=== PATIENT | male | born 1985 | race American Indian/Alaskan Native ===

== ENCOUNTER 2017-04-22 13:57 | Emergency (ER) | payer BC ==
[2017-04-22] MEDS ORDERED: CATAPRES PO ONE (14:19)
--- NOTE | 2017-04-22 14:20 | Emergency Department Report ---
Blank Doc - Documentation Documentation: Patient is a 32-year-old -[place] male who is presented with headache. Patient states for the last month he has had off-and-on headaches intermittently throughout the day. Patient states he's been told his blood pressure was high in the past but has not been started on any medications. Patient blood pressure today is 190/120. Patient will be given Catapres will monitor his blood pressure. Patient has no signs or symptoms and organ damage she is denying any chest pain shortness of breath decreased urination at this time.
[2017-04-22] MEDS ORDERED: TYLENOL PO ONE (14:22)
--- NOTE | 2017-04-22 15:33 | Cat Scan Report ---
CT HEAD WITHOUT CONTRAST: HISTORY: Headache. TECHNIQUE: Sequential 2.5mm CT images. COMPARISON: none. FINDINGS: Cerebral Parenchyma: Within normal limits. Cerebellum: Within normal limits. Brainstem: Within normal limits. Ventricles: Normal. Sella: Normal. Extra-axial spaces: Normal. Basal Cisterns: Normal. Intracranial Hemorrhage: None. Midline Shift: None. Calvarium: Normal. Sinuses: Mild to moderate mucosal thickening is noted in the left frontal sinus and right maxillary sinus. Mastoid Air Cells: Normal. Visualized Orbits: Normal. IMPRESSION: Cranial CT scan within normal limits. Sinus disease as described, likely chronic.
[2017-04-22 15:44] VITALS: BP 138/87
--- NOTE | 2017-04-22 15:49 | Emergency Department Report ---
ED Headache HPI - General Chief Complaint: Headache Stated Complaint: HEADACHE Time Seen by Provider: 04/22/17 14:10 - History of Present Illness Initial Comments: This is a 32-year-old male nontoxic, well nourished in appearance, no acute signs of distress presents to the ED with c/o of intermittent headaches x1 month. Patient stated he was diagnosed with hypertension but has never started on any medications. Patient describes headache diffuse but primarily in the frontal sinus region. Patient describes headache as aching with gradual onset. Patient denies thunderclap headache. Patient denies any stiff neck, nausea, vomiting, chest pain, shortness of breathe, fever, chills, numbness, tingling. Patient denies any visual changes. Patient denies any allergies or significant past medical history. Timing/Duration: episodic Quality: mild Head Injury Location: frontal, other (diffuse) Recent Head Trauma: no recent headache/trauma, frequent headaches Associated Symptoms: denies symptoms. denies: confusion, fatigue, facial pain, fever/chills, flushing, loss of consciousness, nausea/vomiting, nasal congestion , nasal drainage, numbness in legs/feet, rash, seizures, sinus infection, stiff neck, vision changes, weakness Allergies/Adverse Reactions: Allergies No Known Allergies Allergy (Unverified 04/22/17 14:02) Home Medications: Ambulatory Orders Amoxicillin/K Clav Tab [Augmentin 875 mg] 1 tab PO Q12HR #20 tab 04/22/17 amLODIPine [Norvasc] 5 mg PO DAILY #30 tab 04/22/17 ED Review of Systems ROS: Stated complaint: HEADACHE Other details as noted in HPI Constitutional: denies: chills, fever Eyes: denies: eye pain, eye discharge, vision change ENT: denies: ear pain, throat pain Respiratory: denies: cough, shortness of breath, wheezing Cardiovascular: denies: chest pain, palpitations Endocrine: no symptoms reported Gastrointestinal: denies: abdominal pain, nausea, diarrhea Genitourinary: denies: urgency, dysuria Musculoskeletal: denies: back pain, joint swelling, arthralgia Skin: denies: rash, lesions Neurological: headache. denies: weakness, paresthesias Psychiatric: denies: anxiety, depression Hematological/Lymphatic: denies: easy bleeding, easy bruising ED Past Medical Hx - Past Medical History Previous Medical History?: No - Surgical History Past Surgical History?: No - Social History Smoking Status: Current Every Day Smoker Substance Use Type: None - Medications Home Medications: Home Medications Medication Instructions Recorded Confirmed Last Taken Type Amoxicillin/K Clav Tab [Augmentin 1 tab PO Q12HR #20 tab 04/22/17 Unknown Rx 875 mg] amLODIPine [Norvasc] 5 mg PO DAILY #30 tab 04/22/17 Unknown Rx ED Physical Exam - General Limitations: No Limitations General appearance: alert, in no apparent distress - Head Head exam: Present: atraumatic, normocephalic - Eye Eye exam: Present: normal appearance, PERRL, EOMI Pupils: Present: normal accommodation - ENT ENT exam: Present: normal exam, normal orophraynx, mucous membranes moist, TM's normal bilaterally, normal external ear exam - Neck Neck exam: Present: normal inspection, full ROM. Absent: tenderness, meningismus, lymphadenopathy, thyromegaly - Respiratory Respiratory exam: Present: normal lung sounds bilaterally. Absent: respiratory distress, wheezes, rales, rhonchi, stridor, chest wall tenderness, accessory muscle use, decreased breath sounds, prolonged expiratory - Cardiovascular Cardiovascular Exam: Present: regular rate, normal rhythm, normal heart sounds. Absent: bradycardia, tachycardia, irregular rhythm, systolic murmur, diastolic murmur, rubs, gallop - GI/Abdominal GI/Abdominal exam: Present: soft, normal bowel sounds. Absent: distended, tenderness, guarding, rebound, rigid, diminished bowel sounds - Rectal Rectal exam: Present: deferred - Extremities Exam Extremities exam: Present: normal inspection, full ROM, normal capillary refill. Absent: tenderness, pedal edema, joint swelling, calf tenderness, other - Back Exam Back exam: Present: normal inspection, full ROM. Absent: tenderness, CVA tenderness (R), CVA tenderness (L), muscle spasm, paraspinal tenderness, vertebral tenderness, rash noted - Neurological Exam Neurological exam: Present: alert, oriented X3, CN II-XII intact, normal gait, reflexes normal - Psychiatric Psychiatric exam: Present: normal affect, normal mood - Skin Skin exam: Present: warm, dry, intact, normal color. Absent: rash ED Course Vital Signs 04/22/17 04/22/17 14:03 15:44 Temperature 98.5 F 98.2 F Pulse Rate 70 72 Respiratory 16 20 Rate Blood Pressure 187/120 Blood Pressure 138/87 [Left] O2 Sat by Pulse 100 100 Oximetry - Reevaluation(s) Reevaluation #1: 04/22/17 15:51 Patient is speaking in full sentences with no signs of distress noted. - Consultations Consultation #1: 04/22/17 15:51 Patient has been consulted with Dr. Yin about patient history, physical exam , and labs and examined and screened patient and agrees to ED plan of care and discharge plan of care. ED Medical Decision Making - Medical Decision Making This is a 32-year-old male that presents with hypertension, headache and sinusitis. Patient is stable was examined by me and Dr. Yin. CT of head/ brain obtained and dictated by radiologist with impression f sinusitis. Patient was notified of the xray results with no questions noted by the patient. Patient received Tylneol and Catapres in the ED. Patients blood pressure decreased within normal limits.Patient stated headache has subsided after medical treatment in the ED. I will start patient on a low dose of Norvasc and patient was instructed to keep a daily dairy of blood pressure to present to the PCP. Patient also received Augmentin at discharge. Patient was instructed to Follow-up with a primary care doctor in 3-5 days or if symptoms worsen and continue return to emergency room as soon as possible. At time of discharge, the patient does not seem toxic or ill in appearance. No acute signs of distress noted. Patient agrees to discharge treatment plan of care. No further questions noted by the patient. Critical care attestation.: If time is entered above; I have spent that time in minutes in the direct care of this critically ill patient, excluding procedure time. ED Disposition Clinical Impression: Headache Qualifiers: Headache type: unspecified Headache chronicity pattern: acute headache Intractability: not intractable Qualified Code(s): R51 - Headache Hypertension Qualifiers: Hypertension type: unspecified Qualified Code(s): I10 - Essential (primary) hypertension Sinusitis Qualifiers: Sinusitis location: frontal Chronicity: acute Recurrence: non-recurrent Qualified Code(s): J01.10 - Acute frontal sinusitis, unspecified Disposition: DC-01 TO HOME OR SELFCARE Is pt being admited?: No Does the pt Need Aspirin: No Condition: Stable Instructions: Hypertension (ED), Acute Headache (ED), Sinusitis (ED), Amlodipine (By mouth) Additional Instructions: Follow-up with a primary care doctor in 3-5 days or if symptoms worsen and continue return to emergency room as soon as possible. Keep a daily diary of her blood pressure and presented to primary care doctor. Prescriptions: amLODIPine [Norvasc] 5 mg PO DAILY #30 tab Amoxicillin/K Clav Tab [Augmentin 875 mg] 1 tab PO Q12HR #20 tab Referrals: PRIMARY CAREMD [Primary Care Provider] - 3-5 Days SAIDA WAHL MD [Staff Physician] - 3-[address] [facility] [Outside] - 3-[address] [facility] [Outside] - 3-5 Days Forms: Work/School Release Form(ED)
== END 2017-04-22 16:11 | disposition home or self-care (01) ==
LOC: ED 13:57
DX: R51 Headache (principal); I10 Essential (primary) hypertension; J01.10 Acute frontal sinusitis, unspecified; F17.200 Nicotine dependence, unspecified, uncomplicated
CPT/HCPCS: 70450; 99283

== ENCOUNTER 2017-07-21 09:08 | Emergency (ER) | payer BC ==
[2017-07-21] MEDS ORDERED: TORADOL IM ONE (10:26)
--- NOTE | 2017-07-21 10:27 | Emergency Department Report ---
Chief Complaint: Extremity Problem,Nontraumatic Stated Complaint: RIGHT FOOT PAIN Time Seen by Provider: 07/21/17 10:20 - HPI History of Present Illness: 32-year-old -Citizen Of [place] male presents to the emergency department with a complaint of a one-day history of nontraumatic right foot pain mostly to the lateral portion. The pain worsens with ambulation but he is able to bear weight but walks with a limp. He denies any past medical history. He has not taken anything for her symptoms prior presentation. - ROS Review of Systems: Positive for right foot pain and swelling. Negative for skin color change - Exam Vital Signs: Vital Signs 07/21/17 09:14 Temperature 98.2 F Pulse Rate 63 Respiratory 19 Rate Blood Pressure 167/105 O2 Sat by Pulse 98 Oximetry Physical Exam: Patient was seen limping while walking secondary to pain in the foot. There is some reproducible tenderness to palpation to the right lateral mid foot. +2 over 4 dorsalis pedis pulse. MSE screening note: Focused history and physical exam performed. Due to findings the following was ordered: An x-ray of the right foot has been ordered and the patient will have a IM injection of Toradol ED Disposition for MSE Condition: Stable
[2017-07-21] MEDS ORDERED: NORVASC PO ONE (10:33)
--- NOTE | 2017-07-21 10:42 | Emergency Department Report ---
ED Lower Extremity HPI - General Chief Complaint: Extremity Problem,Nontraumatic Stated Complaint: RIGHT FOOT PAIN Time Seen by Provider: 07/21/17 10:20 Source: patient Mode of arrival: Ambulatory Limitations: No Limitations - History of Present Illness Initial Comments: This is a 32-year-old male nontoxic, well nourished in appearance, no acute signs of distress presents to the ED with c/o of right foot pain x1 day. 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 Patient denies any direct trauma. Patient denies any nausea, vomiting, chest pain, shortness of breathe, fever, chills, headache, numbness, or tingling. Patient stated that pain is increased with weight bearing. Patient denies any joint redness, joint swelling. Patient denies abnormal or decreased gait. Patient denies any allergies or PMH. MD Complaint: foot injury -: days(s) (1) Injury: Foot: Right (lateral side) Place: work Severity: mild Severity scale (0 -10): 8 Improves With: immobilization Worsens With: weight bearing Associated Symptoms: swelling, able to partially bear weight, ambulatory. denies: snap/pop sensation, numbness, tingling, unable to bear weight - Related Data Previous Rx's Medication Instructions Recorded Last Taken Type Amoxicillin/K Clav Tab [Augmentin 1 tab PO Q12HR #20 tab 04/22/17 Unknown Rx 875 mg] amLODIPine [Norvasc] 5 mg PO DAILY #30 tab 04/22/17 Unknown Rx Ibuprofen [Motrin] 600 mg PO Q8H PRN #30 tablet 07/21/17 Unknown Rx amLODIPine [Norvasc] 5 mg PO DAILY #30 tab 07/21/17 Unknown Rx Allergies Allergy/AdvReac Type Severity Reaction Status Date / Time No Known Allergies Allergy Unverified 04/22/17 14:02 ED Review of Systems ROS: Stated complaint: RIGHT FOOT PAIN Other details as noted in HPI Constitutional: denies: chills, fever Eyes: denies: eye pain, eye discharge, vision change ENT: denies: ear pain, throat pain Respiratory: denies: cough, shortness of breath, wheezing Cardiovascular: denies: chest pain, palpitations Endocrine: no symptoms reported Gastrointestinal: denies: abdominal pain, nausea, diarrhea Genitourinary: denies: urgency, dysuria Musculoskeletal: arthralgia. denies: back pain, joint swelling Skin: denies: rash, lesions Neurological: denies: headache, weakness, paresthesias Psychiatric: denies: anxiety, depression Hematological/Lymphatic: denies: easy bleeding, easy bruising ED Past Medical Hx - Past Medical History Previous Medical History?: Yes Hx Hypertension: Yes - Surgical History Past Surgical History?: No - Social History Smoking Status: Current Every Day Smoker Substance Use Type: Alcohol - Medications Home Medications: Home Medications Medication Instructions Recorded Confirmed Last Taken Type Amoxicillin/K Clav Tab [Augmentin 1 tab PO Q12HR #20 tab 04/22/17 Unknown Rx 875 mg] amLODIPine [Norvasc] 5 mg PO DAILY #30 tab 04/22/17 Unknown Rx Ibuprofen [Motrin] 600 mg PO Q8H PRN #30 tablet 07/21/17 Unknown Rx amLODIPine [Norvasc] 5 mg PO DAILY #30 tab 07/21/17 Unknown Rx ED Physical Exam - General Limitations: No Limitations General appearance: alert, in no apparent distress - Head Head exam: Present: atraumatic, normocephalic - Eye Eye exam: Present: normal appearance Pupils: Present: normal accommodation - ENT ENT exam: Present: normal exam, mucous membranes moist - Neck Neck exam: Present: normal inspection, full ROM - Respiratory Respiratory exam: Present: normal lung sounds bilaterally. Absent: respiratory distress - Cardiovascular Cardiovascular Exam: Present: regular rate, normal rhythm. Absent: systolic murmur, diastolic murmur, rubs, gallop - GI/Abdominal GI/Abdominal exam: Present: soft, normal bowel sounds - Rectal Rectal exam: Present: deferred - Extremities Exam Extremities exam: Present: normal inspection, full ROM, tenderness, normal capillary refill. Absent: joint swelling - Expanded Lower Extremity Exam Right Hip exam: Present: normal inspection, full ROM. Absent: tenderness, swelling Upper Leg exam: Present: normal inspection, full ROM. Absent: tenderness, swelling Knee exam: Present: normal inspection, full ROM, full knee extension. Absent: tenderness, swelling Lower Leg exam: Present: normal inspection, full ROM. Absent: tenderness, swelling, Michael's sign Ankle exam: Present: normal inspection, full ROM. Absent: tenderness, swelling , abrasion, laceration, ecchymosis, deformity, crepidus, dislocation, erythema, anterior draw sign Foot/Toe exam: Present: normal inspection, full ROM, tenderness, swelling. Absent: abrasion, laceration, ecchymosis, deformity, crepidus, dislocation, erythema, amputation, puncture wound, foreign body, calcaneal tenderness, tenderness at base of 5th metatarsal, nail avulsion, subungual hematoma Neuro vascular tendon exam: Present: no vascular compromise. Absent: pulse deficit, abnormal cap refill, motor deficit, sensory deficit, tendon deficit, extremity cold to touch, pallor, abnormal 2-point discrimination, decreased fine /light touch, foot drop, peroneal nerve deficit, significant pain with passive ROM of distal joint Gait: Positive: observed and limited by pain 1 - pain here - Back Exam Back exam: Present: normal inspection, full ROM. Absent: tenderness, CVA tenderness (R), CVA tenderness (L), muscle spasm, paraspinal tenderness, vertebral tenderness, rash noted - Neurological Exam Neurological exam: Present: alert, oriented X3, normal gait - Psychiatric Psychiatric exam: Present: normal affect, normal mood - Skin Skin exam: Present: warm, dry, intact, normal color. Absent: rash ED Course Vital Signs 07/21/17 07/21/17 07/21/17 09:14 10:58 10:59 Temperature 98.2 F Pulse Rate 63 57 L 57 L Respiratory 19 20 Rate Blood Pressure 167/105 168/109 Blood Pressure 168/109 [Right] O2 Sat by Pulse 98 100 Oximetry - Reevaluation(s) Reevaluation #1: 07/21/17 10:43 Patient is speaking in full sentences with no signs of distress noted. - Consultations Consultation #1: Patient has been consulted with Dr. Diaz about patient history, physical exam, and xray results and examined and screened patient and agrees to ED plan of care and discharge plan of care. ED Lower Extremity MDM - Medical Decision Making This is a 32-year-old female that presents with right foot strain and HTN. Patient is stable and was examined by me and Dr. Diaz. Patient stated has been taking Norvasc 5mg but is out of the medications so I gave patient his dose in the ED and will discharge with Norvasc refill. I referred patient to an orthopedic doctor for further evaluation for possible MRI. X-ray has been obtained and dictated by the radiologist. Patient is notified of the x-ray report with noted by the patient. Patient does have normal gait with no tenderness and no joint swelling. No ecchymosis. no joint redness or swelling. Not warm to touch. No signs of cellulites present. Patient was instructed to RICE therapy. Patient received Motrin for pain. Patient is discharged with Motrin. At time of discharge, the patient does not seem toxic or ill in appearance. No acute signs of distress noted. Patient agrees to discharge treatment plan of care. No further questions noted by the patient. Critical care attestation.: If time is entered above; I have spent that time in minutes in the direct care of this critically ill patient, excluding procedure time. ED Disposition Clinical Impression: Right foot strain Qualifiers: Encounter type: initial encounter Qualified Code(s): S96.911A - Strain of unspecified muscle and tendon at ankle and foot level, right foot, initial encounter HTN (hypertension) Qualifiers: Hypertension type: unspecified Qualified Code(s): I10 - Essential (primary) hypertension Disposition: DC- TO HOME OR SELFCARE Is pt being admited?: No Does the pt Need Aspirin: No Condition: Stable Instructions: Hypertension (ED), RICE Therapy (ED), Ibuprofen (By mouth), Amlodipine (By mouth) Additional Instructions: Follow-up with a orthopedic doctor in 3-5 days or if symptoms worsen and continue return to emergency room as soon as possible. Keep a diary of his blood pressure and presented to [facility] doctor and continue taking Norvasc until otherwise directed not to. Prescriptions: amLODIPine [Norvasc] 5 mg PO DAILY #30 tab Ibuprofen [Motrin] 600 mg PO Q8H PRN #30 tablet PRN Reason: Pain Referrals: PRIMARY CARE, [Primary Care Provider] - 3-5 Days PAMELA FLOR MD [Staff Physician] - 3-5 Days SAIDA WAHL MD [Staff Physician] - 3-5 Days [facility] [Outside] - 3-5 Days [facility] [Outside] - 3-5 Days Forms: Work/School Release Form(ED)
--- NOTE | 2017-07-21 11:15 | XRay Report ---
RIGHT FOOT, 3 views: History: Right foot pain. Normal bone mineralization. No evidence for acute fracture, malalignment or bone lesion. There is mild irregularity of the distal interphalangeal joint of the fifth toe. This may be degenerative or posttraumatic in nature. It has a chronic appearance. Please correlate with the patient. The soft tissues are unremarkable. IMPRESSION: No acute process is appreciated. Slightly abnormal fifth toe as outlined above.
[2017-07-21 12:13] VITALS: BP 158/106
== END 2017-07-21 12:14 | disposition home or self-care (01) ==
LOC: ED 09:08
DX: S96.911A Strain of unspecified muscle and tendon at ankle and foot level, right foot, initial encounter (principal); I10 Essential (primary) hypertension; F17.200 Nicotine dependence, unspecified, uncomplicated; X58.XXXA Exposure to other specified factors, initial encounter; Y93.89 Activity, other specified; Y92.89 Other specified places as the place of occurrence of the external cause; Y99.8 Other external cause status
CPT/HCPCS: 73630; 96372; 99283; J1885

== ENCOUNTER 2017-10-31 07:46 | Emergency (ER) | payer BC ==
[2017-10-31] MEDS ORDERED: NORVASC PO ONE (08:11)
[2017-10-31] MEDS ORDERED: NORVASC ONE (08:14)
--- NOTE | 2017-10-31 11:09 | Emergency Department Report ---
ED Back Pain/Injury HPI - General Chief Complaint: Back Pain/Injury Stated Complaint: BACK PAIN Time Seen by Provider: 10/31/17 11:08 Source: patient Limitations: No Limitations - Related Data Previous Rx's Medication Instructions Recorded Last Taken Type Amoxicillin/K Clav Tab [Augmentin 1 tab PO Q12HR #20 tab 04/22/17 Unknown Rx 875 mg] amLODIPine [Norvasc] 5 mg PO DAILY #30 tab 04/22/17 Unknown Rx Ibuprofen [Motrin] 600 mg PO Q8H PRN #30 tablet 07/21/17 Unknown Rx amLODIPine [Norvasc] 5 mg PO DAILY #30 tab 07/21/17 Unknown Rx Allergies Allergy/AdvReac Type Severity Reaction Status Date / Time No Known Allergies Allergy Unverified 04/22/17 14:02 ED Review of Systems ROS: Stated complaint: BACK PAIN Other details as noted in HPI ED Past Medical Hx - Past Medical History Previous Medical History?: Yes Hx Hypertension: Yes - Surgical History Past Surgical History?: No - Social History Smoking Status: Former Smoker Substance Use Type: Alcohol - Medications Home Medications: Home Medications Medication Instructions Recorded Confirmed Last Taken Type Amoxicillin/K Clav Tab [Augmentin 1 tab PO Q12HR #20 tab 04/22/17 Unknown Rx 875 mg] amLODIPine [Norvasc] 5 mg PO DAILY #30 tab 04/22/17 Unknown Rx Ibuprofen [Motrin] 600 mg PO Q8H PRN #30 tablet 07/21/17 Unknown Rx amLODIPine [Norvasc] 5 mg PO DAILY #30 tab 07/21/17 Unknown Rx ED Physical Exam - General Limitations: No Limitations ED Course Vital Signs 10/31/17 10/31/17 10/31/17 08:00 08:12 09:49 Temperature 98.4 F Pulse Rate 65 65 60 Respiratory 18 16 Rate Blood Pressure 163/114 163/114 Blood Pressure 172/112 [Right] O2 Sat by Pulse 100 98 Oximetry Critical care attestation.: If time is entered above; I have spent that time in minutes in the direct care of this critically ill patient, excluding procedure time. ED Disposition Disposition: Z-07 ELOPED Condition: Stable
[2017-10-31] MEDS ORDERED: ULTRAM PO ONE (11:52)
--- NOTE | 2017-10-31 13:58 | Emergency Department Report ---
ED Back Pain/Injury HPI - General Chief Complaint: Back Pain/Injury Stated Complaint: BACK PAIN Time Seen by Provider: 10/31/17 11:08 Source: patient, family Limitations: No Limitations - History of Present Illness Initial Comments: This is 32-year-old male here per these low back pain 2 days. He denies any injury. Patient denies any urinary burning, frequency or urgency. Denies any abdominal pain, fever or chills or nausea or vomiting. He said he thinks it is from sleeping wrong in the chair. He said the pain increases with movement and also reports that he has been out of his blood pressure medication for 2-3 weeks. He is taking Norvasc 5 mg which was given in triage area.. Pain is 7/10 and achy located on the left side of his lower back. He said he took over-the- counter medication without any relief. Exacerbated by movements. He has a history of hypertension. MD Complaint: back pain Onset/Timin -: days(s) Similar Symptoms Previously: Yes Place: home Radiation: none Severity: severe Quality: aching Consistency: constant Improves With: none Worsens With: movement, walking Context: unknown Associated Symptoms: other (elevated blood pressure and ran out of his medication). denies: confusion, weakness, chest pain, numbness, difficulty walking, cough, difficulty urinating, diaphoresis, incontinence, fever/chills, constipation, headaches, abdominal pain, loss of appetite, malaise, nausea/ vomiting, rash, shortness of breath, syncope Treatments Prior to Arrival: NSAIDS - Related Data Previous Rx's Medication Instructions Recorded Last Taken Type Amoxicillin/K Clav Tab [Augmentin 1 tab PO Q12HR #20 tab 04/22/17 Unknown Rx 875 mg] amLODIPine [Norvasc] 5 mg PO DAILY #30 tab 04/22/17 Unknown Rx Ibuprofen [Motrin] 600 mg PO Q8H PRN #30 tablet 07/21/17 Unknown Rx amLODIPine [Norvasc] 5 mg PO DAILY #30 tab 07/21/17 Unknown Rx Cyclobenzaprine [Flexeril 10mg] 10 mg PO Q12H PRN #14 tablet 10/31/17 Unknown Rx traMADol [Ultram 50 MG tab] 50 mg PO Q6HR PRN #16 tablet 10/31/17 Unknown Rx Allergies Allergy/AdvReac Type Severity Reaction Status Date / Time No Known Allergies Allergy Unverified 04/22/17 14:02 ED Review of Systems ROS: Stated complaint: BACK PAIN Other details as noted in HPI Constitutional: denies: chills, fever Eyes: denies: eye pain, eye discharge, vision change ENT: denies: ear pain, throat pain, congestion Respiratory: denies: cough, shortness of breath, wheezing Cardiovascular: denies: chest pain, palpitations, edema, syncope Gastrointestinal: denies: abdominal pain, nausea, vomiting, diarrhea Genitourinary: denies: urgency, dysuria, hematuria, discharge Musculoskeletal: back pain. denies: joint swelling, arthralgia, myalgia Skin: denies: rash, lesions Neurological: denies: headache, weakness, numbness, paresthesias, confusion, abnormal gait, vertigo Hematological/Lymphatic: denies: easy bleeding, easy bruising ED Past Medical Hx - Past Medical History Previous Medical History?: Yes Hx Hypertension: Yes - Surgical History Past Surgical History?: No - Family History Family history: hypertension - Social History Smoking Status: Never Smoker Substance Use Type: Alcohol - Medications Home Medications: Home Medications Medication Instructions Recorded Confirmed Last Taken Type Amoxicillin/K Clav Tab [Augmentin 1 tab PO Q12HR #20 tab 04/22/17 Unknown Rx 875 mg] amLODIPine [Norvasc] 5 mg PO DAILY #30 tab 04/22/17 Unknown Rx Ibuprofen [Motrin] 600 mg PO Q8H PRN #30 tablet 07/21/17 Unknown Rx amLODIPine [Norvasc] 5 mg PO DAILY #30 tab 07/21/17 Unknown Rx Cyclobenzaprine [Flexeril 10mg] 10 mg PO Q12H PRN #14 tablet 10/31/17 Unknown Rx traMADol [Ultram 50 MG tab] 50 mg PO Q6HR PRN #16 tablet 10/31/17 Unknown Rx ED Physical Exam - General Limitations: No Limitations General appearance: alert, in no apparent distress - Head Head exam: Present: atraumatic, normocephalic, normal inspection, other (normal exam) - Eye Eye exam: Present: normal appearance, PERRL, EOMI. Absent: nystagmus, periorbital swelling, periorbital tenderness Pupils: Present: normal accommodation - ENT ENT exam: Present: normal exam, normal orophraynx, mucous membranes moist, TM's normal bilaterally, normal external ear exam - Neck Neck exam: Present: normal inspection, full ROM, other (no C-spine tenderness). Absent: tenderness, lymphadenopathy - Expanded Neck Exam Expanded Neck exam: Absent: carotid bruit - Respiratory Respiratory exam: Present: normal lung sounds bilaterally. Absent: respiratory distress, wheezes, rales, rhonchi, stridor, chest wall tenderness, accessory muscle use, decreased breath sounds, prolonged expiratory - Cardiovascular Cardiovascular Exam: Present: regular rate, normal rhythm, normal heart sounds. Absent: systolic murmur, diastolic murmur - GI/Abdominal GI/Abdominal exam: Present: soft, normal bowel sounds. Absent: distended, tenderness, organomegaly, mass, bruit - Extremities Exam Extremities exam: Present: normal inspection, full ROM, normal capillary refill , other (No cce. + 2 pulses in all extremities, no neurovascular compromise). Absent: tenderness, pedal edema, joint swelling, calf tenderness - Back Exam Back exam: Present: normal inspection, full ROM, tenderness (left lumbar), paraspinal tenderness (left lumbar), other. Absent: CVA tenderness (R), CVA tenderness (L), muscle spasm, vertebral tenderness, rash noted - Neurological Exam Neurological exam: Present: alert, oriented X3, normal gait, reflexes normal. Absent: motor sensory deficit - Expanded Neurological Exam Expanded Neurological exam: Absent: innattentive, memory loss-remote event, memory loss- recent event, ataxia, receptive aphasia, expressive aphasia, total aphasia, tremor, protecting the airway Patient oriented to: Present: person, place, time Speech: Present: fluid speech Cranial nerves: EOM's Intact: Normal, Tongue Deviation: Normal, Nystagmus: Normal Cerebellar function: Romberg: Normal Upper motor neuron: Pronator Drift: Normal, Sensory Extinction: Normal Sensory exam: Upper Extremity Light Touch: Normal, Upper Extremity Temperature: Normal, Lower Extremity Light Touch: Normal, Lower Extremity Temperature: Normal Motor strength exam: RUE: 5, LUE: 5, RLE: 5, LLE: 5 Best Eye Response ([place]): (4) open spontaneously Best Motor Response ([place]): (6) obeys commands Best Verbal Response ([place]): (5) oriented Yves Total: 15 - Psychiatric Psychiatric exam: Present: normal affect, normal mood - Skin Skin exam: Present: warm, dry, intact, normal color. Absent: rash ED Course Vital Signs 10/31/17 10/31/17 10/31/17 08:00 08:12 09:49 Temperature 98.4 F Pulse Rate 65 65 60 Respiratory 18 16 Rate Blood Pressure 163/114 163/114 Blood Pressure 172/112 [Right] O2 Sat by Pulse 100 98 Oximetry 10/31/17 10/31/17 11:56 12:01 Temperature Pulse Rate Respiratory 18 18 Rate Blood Pressure Blood Pressure [Right] O2 Sat by Pulse Oximetry Vital Signs 10/31/17 10/31/17 10/31/17 08:00 08:12 09:49 Temperature 98.4 F Pulse Rate 65 65 60 Respiratory 18 16 Rate Blood Pressure 163/114 163/114 Blood Pressure 172/112 [Right] O2 Sat by Pulse 100 98 Oximetry 10/31/17 10/31/17 10/31/17 11:56 12:01 14:58 Temperature Pulse Rate 60 Respiratory 18 18 16 Rate Blood Pressure Blood Pressure 154/98 [Right] O2 Sat by Pulse 98 Oximetry - Reevaluation(s) Reevaluation #1: 10/31/17 12:09 She received Ultram 50 mg by mouth and upper evaluation his pain has subsided to his back. He received Norvasc 5 mg at 0812 blood pressure pill elevated. Reevaluation #2: 10/31/17 15:01 Urinalysis negative for infection. Blood pressure is better. Plan to increase his Norvasc to 10 mg daily ED Medical Decision Making - Lab Data Lab Results 10/31/17 Range/Units 11:50 Urine Color Yellow (Yellow) Urine Turbidity Clear (Clear) Urine pH 5.0 (5.0-7.0) Ur Specific [place] 1.021 (1.003-1.030) Urine Protein <15 mg/dl (Negative) mg/dL Urine Glucose (UA) Neg (Negative) mg/dL Urine Ketones Neg (Negative) mg/dL Urine Blood Sm (Negative) Urine Nitrite Neg (Negative) Urine Bilirubin Neg (Negative) Urine Urobilinogen < 2.0 (<2.0) mg/dL Ur Leukocyte Esterase Neg (Negative) Urine WBC (Auto) 1.0 (0.0-6.0) /HPF Urine RBC (Auto) < 1.0 (0.0-6.0) /HPF Urine Mucus Few /HPF - Medical Decision Making This is a 32-year-old patient here complaining of left lower back pain for 2 days without any injury. He denies any urinary symptoms. He is also reporting that he has been out of his blood pressure medication for 2-3 weeks which is Norvasc 5 mg daily. Blood pressure in triage is 163/114 and he is not having any chest pain, shortness of breath, headache, blurred vision, nausea vomiting or dizziness. Denies any neck pain or radiation of pain to his extremities. Labs: Urinalysis normal values. Assessment/plan 1: Left lumbar strain-better after pain medication. 2: Lower back pain-bed with Ultram and will discharge him home on Ultram and Flexeril 3: Elevated blood pressure with history of hypertension-blood pressure 163/114 and after Norvasc 5 mg by mouth it is 154/98. I plan to increase his Norvasc from 5 mg to 10 mg daily and refer him to [facility] primary care for management of chronic hypertension. I discussed the patient's urinalysis results, diagnosis, treatment plan and vital signs along with medication. I instructed that he needs to follow-up at [facility] to call to schedule an appointment for follow-up of his chronic medical problem. Patient is noncompliant with his blood pressure medication and he came in with elevated blood pressure today that he was not aware that was elevated but he voiced that he has not taken his medication for 2 -3 weeks because he ran out. Patient is stable at present and discharged home in stable condition with prescription for Norvasc. Vital signs stable, febrile and pain has resolved. Critical care attestation.: If time is entered above; I have spent that time in minutes in the direct care of this critically ill patient, excluding procedure time. ED Disposition Clinical Impression: Exacerbation of chronic back pain Hypertension Qualifiers: Hypertension type: essential hypertension Qualified Code(s): I10 - Essential ( primary) hypertension Low back strain Qualifiers: Encounter type: initial encounter Qualified Code(s): S39.012A - Strain of muscle, fascia and tendon of lower back, initial encounter Disposition: TO HOME OR SELFCARE Is pt being admited?: No Does the pt Need Aspirin: No Condition: Stable Instructions: Hypertension (ED), Low Back Strain (ED), Back Pain (ED) Additional Instructions: Please follow up with orthopedic doctor as instructed. Follow-up with [facility] for primary care visit to manage her chronic hypertension Take a blood pressure medication daily and schedule an appointment for your medication ran out. Take Ultram for pain and Flexeril for back strain but please do not drive or operate heavy machinery while taking this medication as a cause drowsiness If your symptoms worsen, return to the emergency room Referrals: [facility] [Outside] - 11/03/17 PAMELA FLOR MD [Staff Physician] - 3-5 Days Forms: Work/School Release Form(ED)
[2017-10-31 14:29] LABS: Bilirubin,Urine NEG (Negative); Blood,Urine SM (Negative); Color,Urine Yellow (Yellow); Mucus,Urine FEW /HPF; Protein,Urine <15 mg/dL mg/dL (Negative); RBC,Urine < 1.0 /HPF (0.0-6.0); Urobilinogen,Urine < 2.0 mg/dL (<2.0)
[2017-10-31 15:25] VITALS: BP 152/86
== END 2017-10-31 15:23 | disposition home or self-care (01) ==
LOC: ED 07:46
DX: S39.012A Strain of muscle, fascia and tendon of lower back, initial encounter (principal); I10 Essential (primary) hypertension; G89.29 Other chronic pain; X58.XXXA Exposure to other specified factors, initial encounter; Y93.89 Activity, other specified; Y92.89 Other specified places as the place of occurrence of the external cause; Y99.8 Other external cause status
CPT/HCPCS: 81001; 87086; 99283

== ENCOUNTER 2018-04-06 12:12 | Emergency (ER) | payer BC ==
--- NOTE | 2018-04-06 12:22 | Emergency Department Report ---
Blank Doc - Documentation Documentation: This is a 33-year-old male that presents with dizziness and hypertension. Vandana granados denies any headaches. Denies any head trauma. Stated is out of his blood pressure medications of Norvac and HCTZ. This initial assessment diagnostic orders/clinical plan/treatment(s) is/are awad bject to change based on patient's health status, clinical progression and re- assessment by fellow clinical providers in the ED. Further treatment and workup at subsequent clinical providers discretion. Patient/guardians urged not to elope from ED s their condition may be serious if not clinically assessed and managed. Initial orders include: 1-Patient sent to [facility] for further evaluation and treatment
[2018-04-06] MEDS ORDERED: CATAPRES PO ONE (13:36)
--- NOTE | 2018-04-06 13:38 | Emergency Department Report ---
ED General Adult HPI - General Chief complaint: High BP Stated complaint: BP Time Seen by Provider: 04/06/18 12:19 Source: patient Mode of arrival: Ambulatory Limitations: No Limitations - History of Present Illness Initial comments: Patient is 33 years old male with history of hypertension. Patient stated that he is out of his blood pressure medicine for the last one week. Patient presented to the ER with a dizziness that is started this morning. Patient stated that he checked his blood pressure at that time he was high. Patient denied any chest pain, shortness of breath, numbness, weakness, tingling sensation. No bowel or bladder incontinence. - Related Data Previous Rx's Medication Instructions Recorded Last Taken Type Amoxicillin/K Clav Tab [Augmentin 1 tab PO Q12HR #20 tab 04/22/17 Unknown Rx 875 mg] amLODIPine [Norvasc] 5 mg PO DAILY #30 tab 04/22/17 Unknown Rx Ibuprofen [Motrin] 600 mg PO Q8H PRN #30 tablet 07/21/17 Unknown Rx amLODIPine [Norvasc] 5 mg PO DAILY #30 tab 07/21/17 Unknown Rx Amlodipine Besylate [Norvasc] 10 mg PO QAM 30 Days #30 tablet 10/31/17 Unknown Rx Cyclobenzaprine [Flexeril 10mg] 10 mg PO Q12H PRN #14 tablet 10/31/17 Unknown Rx traMADol [Ultram 50 MG tab] 50 mg PO Q6HR PRN #16 tablet 10/31/17 Unknown Rx Allergies Allergy/AdvReac Type Severity Reaction Status Date / Time No Known Allergies Allergy Unverified 04/22/17 14:02 ED Review of Systems ROS: Stated complaint: BP Other details as noted in HPI Comment: All other systems reviewed and negative Constitutional: denies: chills, fever Respiratory: denies: cough, orthopnea, shortness of breath, SOB with exertion, SOB at rest, wheezing Cardiovascular: denies: chest pain, palpitations Gastrointestinal: denies: abdominal pain, nausea, vomiting, diarrhea, constipation, hematemesis, hematochezia Musculoskeletal: denies: back pain Neurological: vertigo. denies: headache, weakness, numbness, paresthesias, confusion, abnormal gait ED Past Medical Hx - Past Medical History Hx Hypertension: Yes - Surgical History Past Surgical History?: No - Social History Smoking Status: Former Smoker Substance Use Type: None - Medications Home Medications: Home Medications Medication Instructions Recorded Confirmed Last Taken Type Amoxicillin/K Clav Tab [Augmentin 1 tab PO Q12HR #20 tab 04/22/17 Unknown Rx 875 mg] amLODIPine [Norvasc] 5 mg PO DAILY #30 tab 04/22/17 Unknown Rx Ibuprofen [Motrin] 600 mg PO Q8H PRN #30 tablet 07/21/17 Unknown Rx amLODIPine [Norvasc] 5 mg PO DAILY #30 tab 07/21/17 Unknown Rx Amlodipine Besylate [Norvasc] 10 mg PO QAM 30 Days #30 tablet 10/31/17 Unknown Rx Cyclobenzaprine [Flexeril 10mg] 10 mg PO Q12H PRN #14 tablet 10/31/17 Unknown Rx traMADol [Ultram 50 MG tab] 50 mg PO Q6HR PRN #16 tablet 10/31/17 Unknown Rx ED Physical Exam - General Limitations: No Limitations General appearance: alert, in no apparent distress - Head Head exam: Present: atraumatic, normocephalic, normal inspection - Eye Eye exam: Present: normal appearance, PERRL - ENT ENT exam: Present: normal exam, normal orophraynx, mucous membranes moist - Neck Neck exam: Present: normal inspection, full ROM. Absent: tenderness, meningis mus, lymphadenopathy, thyromegaly - Respiratory Respiratory exam: Present: normal lung sounds bilaterally - Cardiovascular Cardiovascular Exam: Present: regular rate, normal rhythm, normal heart sounds - GI/Abdominal GI/Abdominal exam: Present: soft, normal bowel sounds. Absent: distended, tenderness, guarding, rebound, rigid, organomegaly, mass, bruit, pulsatile mass, hernia - Extremities Exam Extremities exam: Present: normal inspection, full ROM, normal capillary refill - Back Exam Back exam: Present: normal inspection, full ROM - Neurological Exam Neurological exam: Present: alert, oriented X3, CN II-XII intact, normal gait - Skin Skin exam: Present: warm, intact, normal color ED Course Vital Signs 04/06/18 04/06/18 12:22 14:35 Temperature 97.9 F Pulse Rate 61 Respiratory 18 Rate Blood Pressure 160/100 Blood Pressure 139/91 [Left] O2 Sat by Pulse 100 Oximetry ED Medical Decision Making - Lab Data Result diagrams: 04/06/18 13:45 02/18/19 13:45 - Medical Decision Making Patient is 33 years old male with history of hypertension. Patient stated that he is out of his blood pressure medicine for the last one week. Patient presented to the ER with a dizziness that is started this morning. Patient stated that he checked his blood pressure at that time he was high. Patient denied any chest pain, shortness of breath, numbness, weakness, tingling sensation. No bowel or bladder incontinence. Patient is stated that he is feeling much better after clonidine 0.1 mg. Patient, blood pressure is 139/91. Labs reviewed and is unremarkable. Critical care attestation.: If time is entered above; I have spent that time in minutes in the direct care of this critically ill patient, excluding procedure time. ED Disposition Clinical Impression: Malignant hypertension, Dizziness Disposition: DC-01 TO HOME OR SELFCARE Is pt being admited?: No Condition: Stable Instructions: Hypertension (ED) Referrals: [facility] [Primary Care Provider] - 3-5 Days
[2018-04-06 14:09] LABS: Basophils % (Auto) 0.2 % (0.0-1.8); Eosinophils # (Auto) 0.1 K/mm3 (0.0-0.4); Eosinophils % (Auto) 0.9 % (0.0-4.3); Hematocrit 45.7 % (35.5-45.6); Hemoglobin 15.5 gm/dl (11.8-15.2); Lymphocytes # (Auto) 3.2 K/mm3 (1.2-5.4); Lymphocytes % (Auto) 26.5 % (13.4-35.0); Mean Corpuscular HGB Conc 34 % (32-34); Mean Corpuscular Volume 90 fl (84-94); Monocytes # (Auto) 0.8 K/mm3 (0.0-0.8); Monocytes % (Auto) 6.6 % (0.0-7.3); Platelet Count 324 K/mm3 (140-440); Red Blood Count 5.08 M/mm3 (3.65-5.03); Red Cell Distribution Width 13.7 % (13.2-15.2)
[2018-04-06 14:28] LABS: BUN/Creatinine Ratio 11; Blood Urea Nitrogen 14 mg/dL (9-20); Calcium 9.6 mg/dL (8.4-10.2); Hemolysis Index 18
[2018-04-06 14:38] VITALS: BP 139/91
== END 2018-04-06 15:15 | disposition home or self-care (01) ==
LOC: ED 12:12
DX: I10 Essential (primary) hypertension (principal); R42 Dizziness and giddiness; Z87.891 Personal history of nicotine dependence
CPT/HCPCS: 36415; 80048; 85025; 99283

== ENCOUNTER 2018-08-21 14:36 | Emergency (ER) | payer BC, OTHER ==
--- NOTE | 2018-08-21 14:57 | Emergency Department Report ---
Blank Doc - Documentation Documentation: Pt report left ankle pain without swelling that started this morning. Reports unknown cause Pt admits to drinking alcohol yesterday and does not if injured area. Pain with movement
--- NOTE | 2018-08-21 15:46 | Emergency Department Report ---
ED Back Pain/Injury HPI - General Chief Complaint: Extremity Injury, Lower Stated Complaint: LT ANKLE PAIN Time Seen by Provider: 08/21/18 14:54 Source: patient Limitations: No Limitations - History of Present Illness Initial Comments: Patient is a 33-year-old male who comes to the ER today complaining of left ankle pain. He is ambulatory but with a limp. He does not recall any injury to the ankle. He has done nothing to make it better prior to arrival in the emergency room. - Related Data Previous Rx's Medication Instructions Recorded Last Taken Type Amoxicillin/K Clav Tab [Augmentin 1 tab PO Q12HR #20 tab 04/22/17 Unknown Rx 875 mg] amLODIPine [Norvasc] 5 mg PO DAILY #30 tab 04/22/17 Unknown Rx Ibuprofen [Motrin] 600 mg PO Q8H PRN #30 tablet 07/21/17 Unknown Rx amLODIPine [Norvasc] 5 mg PO DAILY #30 tab 07/21/17 Unknown Rx Amlodipine Besylate [Norvasc] 10 mg PO QAM 30 Days #30 tablet 10/31/17 Unknown Rx Cyclobenzaprine [Flexeril 10mg] 10 mg PO Q12H PRN #14 tablet 10/31/17 Unknown Rx traMADol [Ultram 50 MG tab] 50 mg PO Q6HR PRN #16 tablet 10/31/17 Unknown Rx amLODIPine [Norvasc] 5 mg PO DAILY #30 tab 04/06/18 Unknown Rx Allergies Allergy/AdvReac Type Severity Reaction Status Date / Time No Known Allergies Allergy Verified 08/21/18 14:39 ED Review of Systems ROS: Stated complaint: LT ANKLE PAIN Other details as noted in HPI Comment: All other systems reviewed and negative ED Past Medical Hx - Past Medical History Medical history: hypertension Family history: hypertension ED Back Pain Physical Exam - Exam General: Vital signs noted. No distress. Alert and acting appropriately. WDWN patient in NAD VS per RN flow sheet Alert and oriented to person, place and time. S1-S2. No S3 or S4. No systolic or diastolic murmur. No JVD. No pitting edema. Lungs clear to auscultation bilaterally anteriorly and posteriorly. Abdomen soft nontender bowel soundsX4 Moves all extremities well. AMBULATING BUT WITH A LIMP NO SWELLING ON EXAM DP/PT BILATERAL PLUS 2 Mood and affect appropriate. ED Course Vital Signs 08/21/18 14:54 Temperature 98.4 F Pulse Rate 86 Respiratory 18 Rate Blood Pressure 156/95 O2 Sat by Pulse 100 Oximetry Ed Back Pain Tests - Tests Tests: Normal X Rays ED Medical Decision Making - Radiology Data Radiology results: report reviewed, image reviewed - Medical Decision Making XRAY NEG FOR FRACTURE MEDICATED WITH MOTRIN DC HOME WITH RICE TREATMENT AND FOLLOW UP WITH ORTHO NEXT WEEK IF PAIN PERSISTS Vital Signs 08/21/18 14:54 Temperature 98.4 F Pulse Rate 86 Respiratory 18 Rate Blood Pressure 156/95 O2 Sat by Pulse 100 Oximetry - Differential Diagnosis RO FX Critical care attestation.: If time is entered above; I have spent that time in minutes in the direct care of this critically ill patient, excluding procedure time. ED Disposition Clinical Impression: Ankle sprain Disposition: - TO HOME OR SELFCARE Is pt being admited?: No Does the pt Need Aspirin: No Condition: Stable Additional Instructions: DIET TOLERATED FOLLOW UP PCP WITH DR FLOR IF PAIN PERSISTS REFERRAL BELOW ACTIVITY TOLERATED MOTRIN OR TYLENOL FOR PAIN OR FEVER RETURN TO THE ER FOR WORSENING SYMPTOMS NOT RELIEVED BY YOUR MEDICATIONS. Referrals: PAMELA FLOR MD [Staff Physician] - 3-5 Days Time of Disposition: 16:13
--- NOTE | 2018-08-21 15:59 | XRay Report ---
Left ankle, 3 views INDICATION: Left ankle pain. COMPARISON: None. IMPRESSION: No acute osseous or soft tissue abnormality. 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 Signer Name: Ryne Kyle Jr, MD Signed: 08/21/2018 3:54 PM Workstation Name: [id number]
[2018-08-21] MEDS ORDERED: IBUPROFEN PO ONE (16:14)
[2018-08-21 16:30] VITALS: BP 150/91
== END 2018-08-21 16:23 | disposition home or self-care (01) ==
LOC: ED 14:36
DX: S93.402A Sprain of unspecified ligament of left ankle, initial encounter (principal); X58.XXXA Exposure to other specified factors, initial encounter; Y93.89 Activity, other specified; Y92.89 Other specified places as the place of occurrence of the external cause; Y99.8 Other external cause status

== ENCOUNTER 2020-06-06 10:01 | Emergency (ER) | payer BC, OTHER ==
[2020-06-06 11:00] VITALS: BP 146/93
--- NOTE | 2020-06-06 11:07 | Emergency Department Report ---
ED Lower Extremity HPI - General Chief Complaint: Extremity Injury, Lower Stated Complaint: RIGHT FOOT PAIN Time Seen by Provider: 06/06/20 11:03 Source: patient Mode of arrival: Ambulatory Limitations: No Limitations - History of Present Illness Initial Comments: Patient is a 35-year-old male presents emergency room complaints of right foot pain that began 2 days ago. He states that 2 days ago he was out in the yard mowing grass and he believes he missed stepped and began having pain in his foot. He states that his job wanted him to have his foot evaluated. He denies ever injuring in the past. He is ambulatory. He denies any numbness or weakness or abrasions or lacerations. Past medical history of hypertension and gout. No allergies to medications. - Related Data Previous Rx's Medication Instructions Recorded Last Taken Type Amoxicillin/K Clav Tab [Augmentin 1 tab PO Q12HR #20 tab 04/22/17 Unknown Rx 875 mg] amLODIPine [Norvasc] 5 mg PO DAILY #30 tab 04/22/17 Unknown Rx Ibuprofen [Motrin] 600 mg PO Q8H PRN #30 tablet 07/21/17 Unknown Rx amLODIPine [Norvasc] 5 mg PO DAILY #30 tab 07/21/17 Unknown Rx Amlodipine Besylate [Norvasc] 10 mg PO QAM 30 Days #30 tablet 10/31/17 Unknown Rx Cyclobenzaprine [Flexeril 10mg] 10 mg PO Q12H PRN #14 tablet 10/31/17 Unknown Rx traMADoL [Ultram 50 MG tab] 50 mg PO Q6HR PRN #16 tablet 10/31/17 Unknown Rx amLODIPine [Norvasc] 5 mg PO DAILY #30 tab 04/06/18 Unknown Rx Aspirin 325 mg PO QDAY #30 tablet 09/17/19 Unknown Rx traMADoL [Ultram 50 MG tab] 50 mg PO Q6HR PRN #15 tablet 09/17/19 Unknown Rx Naproxen [EC-Naprosyn] 500 mg PO BID PRN #14 tablet. 06/06/20 Unknown Rx Allergies Allergy/AdvReac Type Severity Reaction Status Date / Time No Known Allergies Allergy Verified 06/06/20 11:01 ED Review of Systems ROS: Stated complaint: RIGHT FOOT PAIN Other details as noted in HPI Comment: All other systems reviewed and negative ED Past Medical Hx - Past Medical History Hx Hypertension: Yes Additional medical history: GOUT - Social History Smoking Status: Never Smoker Substance Use Type: None - Medications Home Medications: Home Medications Medication Instructions Recorded Confirmed Last Taken Type Amoxicillin/K Clav Tab [Augmentin 1 tab PO Q12HR #20 tab 04/22/17 Unknown Rx 875 mg] amLODIPine [Norvasc] 5 mg PO DAILY #30 tab 04/22/17 Unknown Rx Ibuprofen [Motrin] 600 mg PO Q8H PRN #30 tablet 07/21/17 Unknown Rx amLODIPine [Norvasc] 5 mg PO DAILY #30 tab 07/21/17 Unknown Rx Amlodipine Besylate [Norvasc] 10 mg PO QAM 30 Days #30 tablet 10/31/17 Unknown Rx Cyclobenzaprine [Flexeril 10mg] 10 mg PO Q12H PRN #14 tablet 10/31/17 Unknown Rx traMADoL [Ultram 50 MG tab] 50 mg PO Q6HR PRN #16 tablet 10/31/17 Unknown Rx amLODIPine [Norvasc] 5 mg PO DAILY #30 tab 04/06/18 Unknown Rx Aspirin 325 mg PO QDAY #30 tablet 09/17/19 Unknown Rx traMADoL [Ultram 50 MG tab] 50 mg PO Q6HR PRN #15 tablet 09/17/19 Unknown Rx Naproxen [EC-Naprosyn] 500 mg PO BID PRN #14 tablet. 06/06/20 Unknown Rx ED Physical Exam - General Limitations: No Limitations General appearance: alert, in no apparent distress - Head Head exam: Present: atraumatic, normocephalic - Eye Eye exam: Present: normal appearance - ENT ENT exam: Present: mucous membranes moist - Respiratory Respiratory exam: Absent: respiratory distress, accessory muscle use - Extremities Exam Extremities exam: Present: other (ttp to the right dorsal foot, no ecchymosis, no signficant edema, no deformity, FROM of the right ankle, foot, and toes, achiles tendon is intact, neurovascularly intact) - Neurological Exam Neurological exam: Present: alert, oriented X3 - Psychiatric Psychiatric exam: Present: normal affect, normal mood - Skin Skin exam: Present: warm, dry, intact ED Course Vital Signs 06/06/20 10:58 Temperature 98.3 F Pulse Rate 73 Respiratory 18 Rate Blood Pressure 146/93 O2 Sat by Pulse 97 Oximetry ED Lower Extremity MDM - Radiology Data Radiology results: report reviewed Ordering Physician: RAKESH DEL TORO Date of Service: 06/06/20 Procedure(s): XR foot 3+V RT Accession Number(s): [id number] cc: RAKESH DEL TORO Fluoro Time In Minutes: RIGHT FOOT 3 VIEWS INDICATION / CLINICAL INFORMATION: right dorsal foot pain after misstep COMPARISON: Report from 07/21/2017. Images are not available for direct comparison. FINDINGS: BONES / JOINT(S): No acute fracture or subluxation. No significant arthritis. SOFT TISSUES: No significant abnormality. ADDITIONAL FINDINGS: None. Signer Name: Az Porras MD Signed: 06/06/2020 11:36 AM Workstation Name: [id number] Transcribed By: Dictated By: Az Porras MD Electronically Authenticated By: Az Porras MD Signed Date/Time: 06/06/20 1136 DD/ 1134 TD/TT: - Medical Decision Making Patient is a 35-year-old male presents emergency room complaints of right foot pain that began 2 days ago. He states that 2 days ago he was out in the yard mowing grass and he believes he missed stepped and began having pain in his foot. He states that his job wanted him to have his foot evaluated. He denies ever injuring in the past. He is ambulatory. He denies any numbness or weakness or abrasions or lacerations. Past medical history of hypertension and gout. No allergies to medications. on exam: ttp to the right dorsal foot, no ecchymosis, no signficant edema, no deformity, FROM of the right ankle, foot, and toes, achiles tendon is intact, neurovascularly intact. XR right foot: BONES / JOINT(S): No acute fracture or subluxation. No significant arthritis. SOFT TISSUES: No significant abnormality. ADDITIONAL FINDINGS: None. Patient given prescription for naproxen. Symptoms likely related to very mild foot sprain. Advised patient Please take medication as prescribed as needed. May use ice for 15 minutes at a time, rest, elevation of the leg, Epson salt bath. May use Charbel bandage [id number] but do not wear too tightly and do not wear at night while sleeping. Follow-up with your primary care doctor. Follow-up with orthopedic doctor symptoms or not improving. Return to emergency room for new or worsening symptoms. Critical care attestation.: If time is entered above; I have spent that time in minutes in the direct care of this critically ill patient, excluding procedure time. ED Disposition Clinical Impression: Right foot sprain Qualifiers: Encounter type: initial encounter Qualified Code(s): S93.601A - Unspecified sprain of right foot, initial encounter Disposition: TO HOME OR SELFCARE Is pt being admited?: No Does the pt Need Aspirin: No Condition: Stable Instructions: Foot Sprain, Elastic Bandage and RICE Therapy Additional Instructions: Please take medication as prescribed as needed. May use ice for 15 minutes at a time, rest, elevation of the leg, Epson salt bath. May use Charbel bandage [id number] but do not wear too tightly and do not wear at night while sleeping. Follow-up with your primary care doctor. Follow-up with orthopedic doctor symptoms or not improving. Return to emergency room for new or worsening symptoms. The x-ray of your foot is normal Prescriptions: Naproxen [EC-Naprosyn] 500 mg PO BID PRN #14 tablet.dr KISER Reason: pain Referrals: PRIMARY CARE, [Referring] - 2-3 Days PAMELA FLOR MD [Staff Physician] - as needed Forms: Work/School Release Form(ED) Time of Disposition: 11:43 Print Language: HUNGARIAN
--- NOTE | 2020-06-06 11:40 | XRay Report ---
RIGHT FOOT 3 VIEWS INDICATION / CLINICAL INFORMATION: right dorsal foot pain after misstep COMPARISON: Report from 07/21/2017. Images are not available for direct comparison. FINDINGS: BONES / JOINT(S): No acute fracture or subluxation. No significant arthritis. SOFT TISSUES: No significant abnormality. ADDITIONAL FINDINGS: None. Signer Name: Az Porras MD Signed: 06/06/2020 11:36 AM Workstation Name: [id number]
== END 2020-06-06 19:00 | disposition home or self-care (01) ==
LOC: ED 10:01
DX: S93.601A Unspecified sprain of right foot, initial encounter (principal); I10 Essential (primary) hypertension; M10.9 Gout, unspecified; Z79.899 Other long term (current) drug therapy; X58.XXXA Exposure to other specified factors, initial encounter; Y93.89 Activity, other specified; Y92.89 Other specified places as the place of occurrence of the external cause; Y99.8 Other external cause status

== ENCOUNTER 2021-05-28 15:07 | Outpatient (CLI) | payer BC ==
--- NOTE | 2021-05-28 16:34 | XRay Report ---
LEFT FOOT 3 VIEW(S) INDICATION / CLINICAL INFORMATION: PAIN IN LEFT FOOT M79.672 foot pain for 4 days COMPARISON: None available. FINDINGS: BONES / JOINT(S): No acute fracture or subluxation. There is mild degenerative change in the first ta rsal metatarsal joint. SOFT TISSUES: No significant abnormality. ADDITIONAL FINDINGS: None. No fracture or dislocation is seen. There is mild degenerative change of the first tarsal metatarsal joint. Signer Name: Az Porras MD Signed: 05/28/2021 4:29 PM Workstation Name: [email or web address]
== END 2021-05-28 15:08 | disposition home or self-care (01) ==
LOC: XRAY 15:07
PROVIDERS: ATTEND Internal Medicine
DX: M19.072 Primary osteoarthritis, left ankle and foot (principal)